=== PATIENT | female | born 1965 | race Hispanic/Latino ===

== ENCOUNTER → 2023-05-22 | Outpatient (CLI) | payer BC ==
[~2023-05-22] MED LIST: ACET-2079 PO; ATOR10TA69 PO; ESOM20CA31 PO; LEVO50TA11 PO; LOSA100T59 PO; MECL-160 PO; METF500T3 PO
== END | disposition home or self-care (01) ==
LOC: RAH 14:52
PROVIDERS: ATTEND Family Medicine
DX: Z12.31 Encounter for screening mammogram for malignant neoplasm of breast (principal)
CPT/HCPCS: 77067